=== PATIENT | male | born 1950 | race Caucasian/White ===

== ENCOUNTER 2023-05-04 11:37 | Outpatient (AMB) | payer OTHER, SELFPAY ==
--- NOTE | 2023-05-04 11:55 | HO.SPINEOV ---
Intake Intake Visit Reasons: lower back pain Intake Note: Mr. Johnson is here today c/o low back pain. MRI done @ [facility]/brought disc. Assessment & Plan Assessment & Plan (1) Stenosis of lateral recess of lumbosacral spine: Code(s): M48.07 - Spinal stenosis, lumbosacral region Plan Dear colleague Thank you for referring Abhilash Johnson to the office today with a chief complaint of recurrent left buttock and leg pain. HPI: This 72-year-old male status post L3-L5 decompression in another institution followed by a left L4 and L5 foraminotomy for ongoing left lumbar radiculopathy by myself. He recovered well from the foraminotomies and was playing golf. He returns with a pain in the left side of his buttock that can radiate down to his calf to the outside of his left foot. The pain is 8/10 when it comes. When it deviates his torso towards the contralateral side the pain subsides. Sometimes he has numbness. The following conservative treatment options were tried without success antiinflammatories, tylenol, physician guided home exercise plan, cortisone shots Physical Exam: Pleasant male. Straight leg raise produces pain in the left buttock. No motor deficits or sensory deficits. Radiological Studies: MRI done at [facility] on 04/29/2023 shows multilevel degenerative disc disease L3-4, L4-5 and L5-S1 causing a lumbar degenerative scoliosis and multilevel foraminal narrowing. More importantly, there is also a L5-S1 lateral recess stenosis causing compression of the left S1 nerve root. Impression/Plan: This patient is suffering from a left lumbar radiculopathy described in the S1 distribution. Therefore I think it makes sense to decompress the S1 nerve root on the left side before we consider correction the lumbar degenerative scoliosis. He is scheduled for a left L5-S1 hemilaminotomy on 07/21/2023. Thank you for allowing me to participate in your patients care. total time spent was 50 minutes in counseling ,coordination of plan, personal review of imaging, surgical decision making and subsequent plan Pancho Bradford MD, PhD [facility] Trained Neurosurgeon Director, [facility] Coding Level of Care Code New Pt Level 4 (23963) Diagnoses Stenosis of lateral recess of lumbosacral spine M48.07
== END 2023-05-04 12:29 | disposition home or self-care (01) ==
PROVIDERS: PCP Physician Assistant; Referring Provider Physician Assistant; Visit Provider Neurological Surgery
DX: M48.07 Spinal stenosis, lumbosacral region (principal)
CPT/HCPCS: 99204

== ENCOUNTER → 2023-05-04 11:37 | Outpatient (BNVA) | payer OTHER, SELFPAY | PROVIDERS: PCP Physician Assistant; Visit Provider Neurological Surgery | DX: M48.07 Spinal stenosis, lumbosacral region (principal) | CPT/HCPCS: 99202 ==

== ENCOUNTER 2023-07-07 07:39 | Day surgery (SDC) | payer OTHER, SELFPAY ==
--- NOTE | 2023-07-06 11:49 | HO.ANESPROP2 ---
Documented by User: Inocencia Corrales NP 07/06/23 11:53 HPI - Anesthesia Eval Consult details Narrative: 72yo M for Left L5-S1 Lumbar Laminectomy No PAT and unable to reach patient by phone. Suboxone 28mg daily. [facility], pt has tapered down to 8mg daily. PMFSH Active Problems Active Problems: All Active Problems (Updated 07/06/23 @ 08:31 by Gabi Jeter RN) Stenosis of lateral recess of lumbosacral spine (Acute) Past Medical History Medical History (Updated 07/07/23 @ 09:08 by Judith Sevilla MD) Back pain Elevated cholesterol Bipolar disorder Opioid dependence PTSD (post-traumatic stress disorder) ADHD Sleep apnea Surgical History Surgical History (Updated 07/07/23 @ 08:16 by Rosario Chau RN) Hx of esophagogastroduodenoscopy Hx of neck surgery History of back surgery H/O colonoscopy History of back surgery Social History Social History (Updated 07/06/23 @ 08:29 by Gabi Jeter RN) Household Members: Spouse Patient Tobacco Use Status: Former Tobacco user Quit Date: 2 mths stop Smoked in Last 30 Days: Yes Substance Use Type Other:: 10 years in recovery for opiates Are you DNR?: No Advance Directives: No Advance Directives Information Provided: Yes Recently lost weight without trying: No Nutrition Risks: No Nutritional Risk Meds Allergies Allergy/AdvReac Type Severity Reaction Status Date / Time No Known Allergies Allergy Verified 07/06/23 08:29 Home Medications Medication Instructions Recorded Confirmed Last Taken Type acetaminophen 500 mg tablet 1,000 mg PO BID 07/06/23 07/06/23 07/06/23 History buprenorphine 8 mg-naloxone 2 mg 3.5 tab sublingual DAILY 07/06/23 07/06/23 07/06/23 History sublingual tablet dextroamphetamine-amphetamine 20 40 mg PO QAM 07/06/23 07/06/23 07/06/23 History mg tablet (Adderall) famotidine 20 mg tablet 20 mg PO BID 07/06/23 07/06/23 07/06/23 History fluticasone propionate 50 1 spray intranasal BID 07/06/23 07/06/23 07/06/23 History mcg/actuation nasal spray,suspension ibuprofen 800 mg tablet 800 mg PO TID PRN Pain 07/06/23 07/06/23 07/06/23 History simvastatin 20 mg tablet 20 mg PO BEDTIME 07/06/23 07/06/23 07/06/23 History terazosin 5 mg capsule 15 mg PO DAILY PRN Hypertension 07/06/23 07/06/23 07/06/23 History zolpidem 10 mg tablet 10 mg PO BEDTIME 07/06/23 07/06/23 07/06/23 History gabapentin 300 mg tablet 300 mg PO TID 07/07/23 07/07/23 07/06/23 22:00 History Exam Height,Weight and Vital Signs: Height 5 ft 10 in Assessment and Plan Assessment Anesthesia Assessment: Chart Reviewed Documented by User: Judith Sevilla MD 07/07/23 09:15 PMFSH Active Problems Active Problems: All Active Problems (Updated 07/07/23 @ 08:56 by Judith Sevilla MD) Stenosis of lateral recess of lumbosacral spine (Acute) Back pain LUISITO- not using CPAP Opioid dependence. On suboxone. Took this morning ADHD Hypercholesterolemia PTSD Marijuana use Bipolar disorder Occasional cigarettes HTN- ?Terazosin prn Past Medical History Medical History (Updated 07/07/23 @ 09:08 by Judith Sevilla MD) Back pain Elevated cholesterol Bipolar disorder Opioid dependence PTSD (post-traumatic stress disorder) ADHD Sleep apnea Family History Family history of problems with anesthesia: No Surgical History Surgical History (Updated 07/07/23 @ 08:16 by Rosario Chau RN) Hx of esophagogastroduodenoscopy Hx of neck surgery History of back surgery H/O colonoscopy History of back surgery History of Problems with Anesthesia: No Social History Social History (Updated 07/06/23 @ 08:29 by Gabi Jeter RN) Household Members: Spouse Patient Tobacco Use Status: Former Tobacco user Quit Date: 2 mths stop Smoked in Last 30 Days: Yes Substance Use Type Other:: 10 years in recovery for opiates Are you DNR?: No Advance Directives: No Advance Directives Information Provided: Yes Recently lost weight without trying: No Nutrition Risks: No Nutritional Risk Meds Allergies Allergy/AdvReac Type Severity Reaction Status Date / Time No Known Allergies Allergy Verified 07/06/23 08:29 Home Medications Medication Instructions Recorded Confirmed Last Taken Type acetaminophen 500 mg tablet 1,000 mg PO BID 07/06/23 07/06/23 07/06/23 History buprenorphine 8 mg-naloxone 2 mg 3.5 tab sublingual DAILY 07/06/23 07/06/23 07/06/23 History sublingual tablet dextroamphetamine-amphetamine 20 40 mg PO QAM 07/06/23 07/06/23 07/06/23 History mg tablet (Adderall) famotidine 20 mg tablet 20 mg PO BID 07/06/23 07/06/23 07/06/23 History fluticasone propionate 50 1 spray intranasal BID 07/06/23 07/06/23 07/06/23 History mcg/actuation nasal spray,suspension ibuprofen 800 mg tablet 800 mg PO TID PRN Pain 07/06/23 07/06/23 07/06/23 History simvastatin 20 mg tablet 20 mg PO BEDTIME 07/06/23 07/06/23 07/06/23 History terazosin 5 mg capsule 15 mg PO DAILY PRN Hypertension 07/06/23 07/06/23 07/06/23 History zolpidem 10 mg tablet 10 mg PO BEDTIME 07/06/23 07/06/23 07/06/23 History gabapentin 300 mg tablet 300 mg PO TID 07/07/23 07/07/23 07/06/23 22:00 History Exam Height,Weight and Vital Signs: Height 5 ft 10 in Weight 81.675 kg Vital Signs Temp Pulse Resp Pulse Ox O2 Del Method 07/07/23 07:46 97 F 90 20 95 Room Air Airway Mallampati Class: I TM Dist: >3cm Neck ROM: Full (H/o neck surgery. Good extension) Partial: Upper and Lower Loose/Missing/Broken Teeth: Yes (Partial dentures top and bottom. Denies broken or loose teeth) Heart: RRR Lungs: CTAB Assessment and Plan Assessment Anesthesia Assessment: Anesthesia Plan Discussed and Chart Reviewed Final Anesthetic Review Family History of Problems with Anesthesia: No History of Problems with Anesthesia: No NPO: Yes ASA Class: III Final Preanesthetic Review: No Changes in Pt Med Stat, Meds/Allgs Chart Reviewed, Consent Obtained/Reviewed and Anes Risks/Benef Reviewed Patient Risk: Intermediate Procedure Risk: Intermediate Assessment/Block/Sedation in SS: Assess/Block/Sedation-SS Anesthetic Plan Anesthetic Plan: Regional Block Disposition: Standard PACU
[2023-07-07] VITALS (8 sets, daily range): BP systolic 101–140; BP diastolic 61–82; PULSE 70–90; RESP 12–20; TEMP 36.1–36.2; O2SAT 95–98; BMI 25.8
--- NOTE | ~2023-07-07 | FL_ITS ---
EXAMINATION: XR FLUOROSCOPY WITH IMAGES CLINICAL INFORMATION: L5-S1 laminectomy left COMPARISON: None available. TECHNIQUE: Fluoroscopy Supervised By: Dr. Bradford. Fluoroscopy Time: 1.9 seconds. Cumulative Dose: 0.7437 mGy. DAP: 0.2742 Gycm2. Images: 1. FINDINGS: Lateral view of the lower lumbar spine and upper sacrum demonstrate a metallic point tender posterior to the S1. FL/FL guidance in OR IMPRESSION: Fluoroscopy of the lower lumbar spine and upper sacrum for L5-S1 laminectomy.
--- NOTE | 2023-07-07 07:23 | MHC.SHP ---
Pre-Procedural Eval Section A - 24 Hr Update-Section A only Date of Service: 07/07/23 The patient is an INPATIENT: No Changes since office visit: No Cold of Flu in the past 2 weeks, No New Medical Problems, No Changes in Medication and No Patient answered all questions The patient has been examined within 24 hours of the surgical procedure. The History & Physical has been completed within 30 days and I have reviewed it.: No Section B - Complete if H&P > 30 days Chief Complaint: Spinal stenosis, lumbosacral region Allergies: Allergies Allergy/AdvReac Type Severity Reaction Status Date / Time No Known Allergies Allergy Verified 07/06/23 08:29 Review of Systems Sugical H&P ROS: Negative: Constitution, Cardiovascular, Respiratory, Neurological, Psychiatric, Hem-Onc, Allergic/Immunologic, Gastrointestinal, Genitourinary, Musculoskeletal, Integumentary, Endocrine and Eyes/Ears/Nose/Throat Exam Surgical H&P Exam: Not Evaluated: HEENT, Not Evaluated: Heart, Not Evaluated: Lungs, Not Evaluated: Extremities, Not Evaluated: Abdomen, Not Evaluated: Skin and Not Evaluated: Neurological Plan Diagnosis/Plan: Unchanged left L5-S1 hemilamintomy Time Spent With Patient Time: Total time managing care of this patient today __7__ minutes.
--- NOTE | 2023-07-07 07:45 | ECG_ITS ---
Test Reason : preop Blood Pressure : / mmHG Vent. Rate : 062 BPM Atrial Rate : 062 BPM P-R Int : 140 ms QRS Dur : 092 ms QT Int : 396 ms P-R-T Axes : 072 031 071 degrees QTc Int : 401 ms Normal sinus rhythm Normal ECG No previous ECGs available Referred By: Inocencia Corrales Electronically Signed By:Ion Hartley
[2023-07-07] MEDS: Gabapentin 300 MG CAPSULE PO (08:01)
[2023-07-07] MEDS: methocarbamoL 750 MG TABLET PO (08:05)
[2023-07-07] MEDS: Lactated Ringers 1,000 ML 100 ML IVCONT (08:13)
--- NOTE | 2023-07-07 11:37 | W.PM.OPN ---
Operative Note Operative Note Date of Service: 07/07/23 Narrative: Preoperative Diagnosis: Spinal stenosis/lateral recess stenosis/neural foraminal stenosis Operation: Left L5-S1 Laminotomy, Partial facetectomy and foraminotomy with use of microscope Consent Informed Consent was obtained for this operation. I have explained the nature, purpose and benefits of the operation. I have discussed the risks and benefit of the operation including possible complications or adverse events with patient/family. Alternative(s) were discussed with the patient with their relative benefits and risks as well as the consequences of not accepting the operation were included in obtaining consent. Surgeon: JUSTIN BOATENG MD, PHD Procedure Assisted By: Derek givens Description of Procedure This patient is status post several lumbar decompression. He complains of predominantly left leg pain in an S1 distribution. MRI shows lateral recess stenosis compressing the left S1 nerve root. We decided to offer him a decompression of the S1 nerve root before possibly addressing his other degenerative levels. The procedure complications were explained. The patient was consented. The patient was brought to the operating room and endotracheally intubated. The patient was turned in prone position on the Rey frame. Prep and drape was done followed by timeout. Physician assistant professor surgical technology provided access. A mid lumbar incision was made followed by release of the paravertebral muscle on the left side to expose the L5 and S1 lamina and facet joint. An intraoperative x-ray was obtained to confirm the correct level. The microscope was brought in. I took over the procedure. The high-speed drill was used to do a L5 and S1 laminotomy. #2 Kerrison was used to further remove the lamina towards the S1 foramen. With a nerve hook the medial wall of the S1 pedicle was palpated as well as the beginning of the S1 foramen. The facet joint was partially drilled down after which with a #2 Kerrison a foraminotomy was done. Finally a foraminotomy Kerrison was used to complete the foraminotomy. A long nerve hook could be easily passed lateral and dorsally from the nerve root, a sign of relief of the neuroforaminal stenosis and decompression of the nerve root . The microscope was removed. Hemostasis was done. Incision was closed in 2 layers. Steri-Strips were used to approximate incision. An OpSite with Tegaderm was used to cover the incision. All sponge needle counts were correct. Patient was extubated and transported in stable is to recovery room. Anesthesia: General Estimated Blood Loss (ml): Minimal Duration of Surgery: Under 60 Minutes Postoperative Plan: Discharge to home
--- NOTE | 2023-07-07 11:38 | PM.DS ---
DS: Providers Provider Date of Service: 07/07/23 Date of discharge: 07/07/23 Primary care physician: SABINO Strong Admitting clinician: Pancho Bradford DS: Diagnosis Discharge Diagnosis (1) Stenosis of lateral recess of lumbosacral spine: Status: Acute DS: Summary Time Attestation Discharge Coordination Time (in mins): 2 Quality: Safe Use of Opioids Does Pt have an Active Cancer Diagnosis on the Problem List?: No Quality: Stroke Does the patient have a stroke diagnosis?: No Physical Exam Vital Signs: Vital Signs: Last Vital Signs Temp 97 F 07/07/23 07:46 Pulse 90 07/07/23 07:46 Resp 20 07/07/23 07:46 BP 101/81 07/07/23 07:46 Pulse Ox 95 07/07/23 07:46 O2 Del Method Room Air 07/07/23 07:46 BMI result Body Mass Index 25.8 Discharge Plan Discharge Patient Disposition: Home, Self-Care Referrals: Jean-Pierre Acosta PA [Primary Care Provider] - 1 Week Discharge Medications: Continued terazosin 5 mg Capsule 15 mg PO DAILY PRN (Reason: Hypertension) ibuprofen 800 mg Tablet 800 mg PO TID PRN (Reason: Pain) acetaminophen 500 mg Tablet 1,000 mg PO BID famotidine 20 mg Tablet 20 mg PO BID simvastatin 20 mg Tablet 20 mg PO BEDTIME dextroamphetamine-amphetamine [Adderall] 20 mg Tablet 40 mg PO QAM zolpidem 10 mg Tablet 10 mg PO BEDTIME fluticasone propionate 50 mcg/actuation [place],Suspension 1 spray INTRANASAL BID Rx Instructions: administer into each nostril buprenorphine-naloxone 8-2 mg Tablet, Sublingual 3.5 tab SUBLINGUAL DAILY gabapentin 300 mg Tablet 300 mg PO TID Discharge Orders: Discharge Order (Routine); Ordered 07/07/23 Ordered By: Derek Burgess Diet: Advance to usual diet Activity on Discharge: As tolerated Activity Restrictions/Additional Instructions: After your spinal surgery we ask you to observe the following restrictions/guidelines: Activity: It is normal to feel some discomfort as you increase your activity, but that will improve with time. We ask you avoid heavy lifting or acitivities that cause pain. As a general rule, 8lbs is a safe limit for lifting right after surgery. Walk as much as you feel comfortable but not to exhaustion. You will feel extra tired the first few days after surgery. Stay well hydrated. It is OK to walk up and down stairs You may return to driving when you are off narcotics (such as vicodin, oxycodone, dilaudid, etc), and you are back to normal functional capacity. If you have any concerns please check with office before driving. Return to work is specific to each patient and each surgery, so please speak with your doctor/PA at first follow up. Please bring paperwork such as FMLA at that time if you need it filled out. Medications: For optimum pain control, it is best to start with a combination of 500 mg of Tylenol every 4 hours with 600 mg of Motrin every 8 hours, and use narcotics as needed in between for breakthrough pain. We will give you a short supply of narcotics after surgery (usually one weeks worth). If you need more please call the office but do not use more than prescribed. You will need to give our office 48 hours notice if you need narcotics refilled and we do not fill narcotics on weekends or evenings. If you are on a narcotic, it is a good idea to take a stool softener such as colace or senna to avoid constipation If you take blood thinner such as aspirin, Plavix, Coumadin, Effient, Eliquis etc for conditions such as Afib, DVT, Pulmonary embolus, coronary disease, stents etc please speak with your surgeon about specific details as to when you can resume these medications. You can resume NSAIDs on post op day 1 (eg: Motrin, Naproxen, etc). Follow up: Please call the office, , after surgery to arrange a 3 week follow up for wound check. Wound Care: You may remove your dressing on the first day after surgery. ?You may ?leave open to air. Please do not remove the steri strips underneath. they will fall off on their own in one week. IT IS NORMAL FOR THE WOUND TO OOZE OR BE BLOODY FOR A FEW DAYS AFTER SURGERY. ?IF THIS HAPPENS JUST PLACE NEW DRESSING OVER IT TO AVOID STAINING CLOTHES. You may shower on post op day # 1 We ask that you do not let the water soak the wound. If it does get wet, just towel dry lightly. Please do not scrub your incision or place any type of chemical/ointment on the wound. No tub baths, pools or jacuzzis for one month. If you have any leaking or redness from your wound, or fevers, please call office
== END 2023-07-07 13:10 | disposition home or self-care (01) ==
PROVIDERS: PCP Physician Assistant; Visit Provider Neurological Surgery
PROC: (CPT 63047; principal; 2023-07-07 09:50)
DX: M48.07 Spinal stenosis, lumbosacral region (principal); M79.662 Pain in left lower leg; R20.0 Anesthesia of skin; E78.00 Pure hypercholesterolemia, unspecified; G47.30 Sleep apnea, unspecified; F43.10 Post-traumatic stress disorder, unspecified; G47.33 Obstructive sleep apnea (adult) (pediatric); F31.9 Bipolar disorder, unspecified; F11.20 Opioid dependence, uncomplicated; Z79.51 Long term (current) use of inhaled steroids; Z79.1 Long term (current) use of non-steroidal anti-inflammatories (NSAID); Z79.899 Other long term (current) drug therapy; Z98.890 Other specified postprocedural states; Z87.891 Personal history of nicotine dependence
CPT/HCPCS: 63047; 93005; J0131; J0690; J1100; J1885; J2250; J2405; J2704; J3010

== ENCOUNTER → 2023-07-07 07:39 | Outpatient (BNV) | payer OTHER, SELFPAY | PROVIDERS: PCP Physician Assistant; Visit Provider Neurological Surgery | DX: M48.07 Spinal stenosis, lumbosacral region (principal) | CPT/HCPCS: 63047; 99499 ==

== ENCOUNTER → 2023-07-07 07:45 | Outpatient (BNV) | payer OTHER, SELFPAY | PROVIDERS: PCP Physician Assistant; Visit Provider Internal Medicine Cardiovascular Disease | DX: Z01.818 Encounter for other preprocedural examination (principal) | CPT/HCPCS: 93010 ==

== ENCOUNTER 2023-07-28 10:15 | Outpatient (AMB) | payer OTHER, SELFPAY ==
--- NOTE | 2023-07-28 10:38 | A.SPINEOV_ITS ---
Intake Intake Visit Reasons: 1st post Intake Note: Mr. Johnson is here today for 1st Post op. Gis Web Developer Required: No Allergies No Known Allergies Allergy (Verified 07/06/23 08:29) Do you need a note to return to daycare/school/sports/work: No Assessment & Plan Assessment & Plan (1) S/P spinal surgery: Code(s): Z98.890 - Other specified postprocedural states Plan Procedure: Left L5-S1 Laminotomy, Partial facetectomy and foraminotomy Abhilash comes in today for his 1st postoperative visit. He reports that initially for the 1st 2 days after surgery he felt almost complete relief of his symptoms. He no longer had the shooting pains into his left lower extremity. Unfortunately shortly thereafter he began having a return of symptoms. He expressed concerns regarding the possibility that he re-injured the area. He was encouraged that he is likely just suffering from postoperative inflammation, which will subside over the course of the next few weeks. Both he and his asked several questions which I answered to the best of my ability. No new neurological deficits. Patient is able to ambulate well, rises from a seated position without difficulty. Incision sites are closed, well healing, with no signs of drainage. We will follow-up with the patient in 6 weeks for his 2nd postoperative visit. The patient was encouraged to set a goal of walking 1 mile per day until we are able to see him again in 6 weeks. Michael Bradford MD,PhD [facility] Coding Level of Care Code Global (22187) Diagnoses S/P spinal surgery Z98.890
== END 2023-07-28 10:52 | disposition home or self-care (01) ==
PROVIDERS: PCP Physician Assistant; Visit Provider Physician Assistant
DX: Z98.890 Other specified postprocedural states (principal)
CPT/HCPCS: 99024

== ENCOUNTER → 2023-07-28 10:15 | Outpatient (BNVA) | payer OTHER, SELFPAY | PROVIDERS: PCP Physician Assistant; Visit Provider Physician Assistant | DX: Z48.89 Encounter for other specified surgical aftercare (principal); Z98.890 Other specified postprocedural states | CPT/HCPCS: 99212 ==

== ENCOUNTER 2023-09-08 10:06 | Outpatient (AMB) | payer OTHER, SELFPAY ==
--- NOTE | 2023-09-08 10:08 | HO.SPINEOV ---
Intake Visit Reasons: 2nd post op Intake Note: Mr. Johnson is here today for his 2nd post-op appointment. Construction Technician Required: No Allergies No Known Allergies Allergy (Verified 09/08/23 10:09) Assessment & Plan Assessment & Plan (1) S/P spinal surgery: Code(s): Z98.890 - Other specified postprocedural states Category: Medical Plan Procedure: Left L5-S1 Laminotomy, Partial facetectomy and foraminotomy Abhilash is a pleasant 73-year-old male who comes in today for a subsequent follow-up visit after his left-sided L5-S1 laminotomy. He reports he is doing very well since his surgery, and has largely had resolution of his symptoms. He does still report some tingling near his left great toe, but overall feels his pain and radiculopathy are gone. He did state that he has been having some right-sided neck/shoulder pains and is scheduled to have a right shoulder surgery in the coming weeks. He stated he will reach back out to us regarding his neck issues if they are not resolved after his shoulder surgery. He has a pertinent Hx of a previous neck surgery performed by Dr. Pandey. No new neurological deficits. Some hyper-reflexia noted diffusely (worst in bilateral patella) but patient has Hx of previous cervical spine surgery so this may be his baseline. No moss's. Gait is normal and not spastic. We will not be routinely following up with Abhilash so he can meet his other medical obligations. He was encouraged to reach back out to our office if needed. Michael Bradford MD,PhD [facility] Coding Level of Care Code Global (31733) Diagnoses S/P spinal surgery Z98.890
== END 2023-09-08 10:28 | disposition home or self-care (01) ==
PROVIDERS: PCP Physician Assistant; Visit Provider Physician Assistant
DX: Z98.890 Other specified postprocedural states (principal)
CPT/HCPCS: 99024

== ENCOUNTER → 2023-09-08 10:06 | Outpatient (BNVA) | payer OTHER, SELFPAY | PROVIDERS: PCP Physician Assistant; Visit Provider Physician Assistant | DX: Z48.89 Encounter for other specified surgical aftercare (principal); Z98.890 Other specified postprocedural states | CPT/HCPCS: 99212 ==

== ENCOUNTER 2023-12-26 10:48 | Outpatient (AMB) | payer OTHER, SELFPAY ==
--- NOTE | 2023-12-26 10:53 | A.SPINEOV_ITS ---
Intake Visit Reasons: severe pain/trouble walking Intake Note: Mr. Johnson is here today c/o of severe pain and trouble walking. Painter Drum Required: No Allergies No Known Allergies Allergy (Verified 09/08/23 10:09) Assessment & Plan Assessment & Plan (1) Back pain: Code(s): M54.9 - Dorsalgia, unspecified Category: Medical Plan Mr Johnson came in today for an acute issue that started a few days ago. He does not recall any specific event but he developed acute onset of back pain going across his whole lower lumbar region. Standing up straight he has been very difficult. Getting in and out of bed can take up to a half an hour. He has been taking naproxen and ibuprofen. He has not report any pain shooting down the legs. No cauda equina symptoms. He does look uncomfortable having difficulty standing up straight but is neurological exam is intact. It sounds to me like he has a muscular strain of his back. He has responded beautifully to steroids in the past, so I told him I would call him in a steroid taper prednisone at his request. He did have an orthopedic surgery shoulder replacement about 3 and half months ago, he will call and ask his orthopedic surgeon if that is okay that he take steroids. I also called him in methocarbamol. I will see him back if he has not improved. I do not think we need to order an MRI yet her start any therapy as I think this will pass on its own. Total amount of time spent in this visit was 20 minutes in discussion of symptoms, and subsequent plan of care Derek Bradford MD,PhD [facility] Medications: New methocarbamol 750 mg PO Q8H 30 tabs 1RF spasm prednisone 60mg po daily x 2 days, 40 mg po daily x 2 days, 20 mg po daily x 2 days, 10mg po daily x 2 days then stop 13 tabs 0RF Coding Level of Care Code Est Pt Level 3 (40572) Diagnoses Back pain M54.9
== END 2023-12-26 11:43 | disposition home or self-care (01) ==
PROVIDERS: PCP Physician Assistant; Visit Provider Physician Assistant
DX: M54.9 Dorsalgia, unspecified (principal)
CPT/HCPCS: 99213

== ENCOUNTER → 2023-12-26 10:48 | Outpatient (BNVA) | payer OTHER, SELFPAY | PROVIDERS: PCP Physician Assistant; Visit Provider Physician Assistant | DX: M54.9 Dorsalgia, unspecified (principal) | CPT/HCPCS: 99212 ==